=== PATIENT | female | born 1990 | race Caucasian/White ===

== ENCOUNTER → 2017-12-09 11:26 | Outpatient (CLI) | payer BC, SELFPAY ==
[2016-10-05 16:55] VITALS: BMI 25.4
[2016-10-07 08:32] VITALS: BP 104/65
[2017-12-09 12:02] LABS: Absolute Lymphocyte Count 1.68 X10^3/ul (0.83-4.51); Absolute Neutrophil Count 5.5 X10^3/uL (2.0-7.7); Basophil# 0.04 X10^3/uL; Basophil% 0.5 % (0-1); Eosinophil# 0.12 X10^3/uL; Eosinophils% 1.5 % (0-5); Hematocrit 39.6 % (37-47); Hemoglobin 13.3 g/dl (12.0-15.0); Lymphocyte # 1.68 X10^3/ul (4.0); Lymphocyte % 21.1 % (19-41); Mean Corp Hgb Conc 33.6 g/gl (32-36); Mean Corpuscular Volume 92.3 fL (81-99); Mean Platelet Vol. 10.2 fl (6.2-12.0); Monocyte# 0.62 X10^3/uL; Monocyte% 7.8 % (0-10); Neutrophil # 5.48 X10^3/uL (2.7-7.7); Platelet Count 197 K/mm3 (150-450); RBC Distribution Width SD 42.7 fl (35.1-43.9); Red Blood Count 4.29 M/mm3 (4.2-5.4)
[2017-12-09 12:03] LABS: POSITIVE COUNT NO; POSITIVE DIFFERENTIAL NO; POSITIVE MORPHOLOGY NO
[2017-12-09 12:07] LABS: Color, Urine Yellow (Yellow); Glucose, Dipstick Normal (Normal); Ketone-Dipstick Negative (Negative); Leukocyte Esterase-Dipstick 25 /ul (Negative); Nitrite-Dipstick Negative (Negative); Occult Blood-Urine Negative /ul (Negative); Protein-Dipstick Negative (Negative); Urine Bilirubin Dipstick Negative (Negative); Urine Clarity Clear (Clear); Urine Urobilinogen Normal (Normal)
[2017-12-09 12:21] LABS: Amphetamine Urine VISTA NEGATIVE (<1000 ng/mL); Barbiturate Urine VISTA NEGATIVE (< 200 ng/mL); Benzodiazepine Urine VISTA NEGATIVE (< 200 ng/mL); Cocaine Urine VISTA NEGATIVE (< 300 ng/mL); Ecstacy Urine VISTA NEGATIVE (< 500 ng/mL); Methadone Urine VISTA NEGATIVE (< 300 ng/mL); PCP Urine VISTA NEGATIVE (< 25 ng/mL); THC Urine VISTA NEGATIVE (< 50 ng/mL); Vista UDS pH Range 6
[2017-12-09 12:43] LABS: Free T3 2.2 pg/mL (2.18-3.98); T4 Free Direct 0.73 ng/dL (0.76-1.46); Thyroid Stim Hormone (TSH) 2.99 uIU/mL (0.358-3.74)
[2017-12-09 13:40] LABS: COTININE Drug Screen Negative (<200 ng/mL)
[2017-12-09 14:12] LABS: HIV - WCH Non-Reactive (Nonreactive); Rubella IgG > 500.0 IU/mL
[2017-12-10 10:47] LABS: HEPATITIS B SURFACE AG Negative (Negative); Hep C Antibodies 0.1 s/co ratio (0.0-0.9)
[2017-12-16 11:44] LABS: Prenatal RPR NONREACTIVE (NONREACTIVE)
== END ==
PROVIDERS: Visit Provider Obstetrics & Gynecology
DX: Z34.81 Encounter for supervision of other normal pregnancy, first trimester (principal)
CPT/HCPCS: 36415; 80307; 81002; 84439; 84443; 84481; 85025; 86703; 86762; 86803; 87340

== ENCOUNTER → 2018-02-01 10:52 | Outpatient (CLI) | payer BC, SELFPAY ==
[2018-02-01 13:56] LABS: Free T3 2.2 pg/mL (2.18-3.98); T4 Free Direct 0.88 ng/dL (0.76-1.46); Thyroid Stim Hormone (TSH) 2.56 uIU/mL (0.358-3.74)
== END ==
PROVIDERS: Visit Provider Obstetrics & Gynecology
DX: E03.9 Hypothyroidism, unspecified (principal)
CPT/HCPCS: 36415; 84439; 84443; 84481

== ENCOUNTER → 2018-04-18 10:13 | Outpatient (CLI) | payer BC, SELFPAY ==
[2018-04-18 13:55] LABS: Hematocrit 37.2 % (37-47); Hemoglobin 12.5 g/dl (12.0-15.0); Mean Corp Hgb Conc 33.6 g/gl (32-36); Mean Corpuscular Volume 98.2 fL (81-99); Mean Platelet Vol. 10.8 fl (6.2-12.0); Platelet Count 174 K/mm3 (150-450); RBC Distribution Width CV 12.8 % (11.6-14.6); RBC Distribution Width SD 44.7 fl (35.1-43.9); Red Blood Count 3.79 M/mm3 (4.2-5.4); White Blood Count 8.2 K/mm3 (4.4-11.0)
[2018-04-18 13:56] LABS: Scan Indicated on CBC? Y/N NO
[2018-04-18 14:17] LABS: Free T3 1.9 pg/mL (2.18-3.98); Glucose Challenge Gest 1H 50g 77 mg/dL (70-140); T4 Free Direct 0.77 ng/dL (0.76-1.46)
== END ==
PROVIDERS: Visit Provider Obstetrics & Gynecology
DX: Z34.83 Encounter for supervision of other normal pregnancy, third trimester (principal)
CPT/HCPCS: 36415; 82950; 84439; 84443; 84481; 85027

== ENCOUNTER → 2018-05-23 11:34 | Outpatient (CLI) | payer BC, SELFPAY ==
[2018-05-23 12:14] LABS: Fetal Fibronectin Negative
== END ==
PROVIDERS: Visit Provider Obstetrics & Gynecology
DX: Z34.83 Encounter for supervision of other normal pregnancy, third trimester (principal)
CPT/HCPCS: 82731

== ENCOUNTER → 2018-06-06 11:15 | Outpatient (CLI) | payer BC, SELFPAY ==
[2018-06-06 13:37] LABS: Group B Strep DNA By PCR Negative (Negative); Internal Control PASS; Probe Check PASS; Specimen Processing Control PASS
== END ==
PROVIDERS: Visit Provider Obstetrics & Gynecology
DX: Z36.85 Encounter for antenatal screening for Streptococcus B (principal)
CPT/HCPCS: 87081; 87653

== ENCOUNTER 2018-07-19 01:08 | Inpatient (IN) | payer BC, SELFPAY ==
[2018-07-18 23:25] VITALS: BMI 26.5
[2018-07-19] MEDS: 0.9% Saline Lock 10 ML Syringe IV (01:33)
[2018-07-19 01:58] LABS: Hematocrit 38.1 % (37-47); Hemoglobin 13.2 g/dl (12.0-15.0); Mean Corp Hgb Conc 34.6 g/gl (32-36); Mean Corpuscular Hgb 33.2 pg (27.0-32.0); Mean Corpuscular Volume 95.7 fL (81-99); Mean Platelet Vol. 11.8 fl (6.2-12.0); Platelet Count 135 K/mm3 (150-450); RBC Distribution Width CV 12.6 % (11.6-14.6); RBC Distribution Width SD 42.8 fl (35.1-43.9); Red Blood Count 3.98 M/mm3 (4.2-5.4); Scan Indicated on CBC? Y/N NO; White Blood Count 11.3 K/mm3 (4.4-11.0)
[2018-07-19] MEDS: Lactated Ringers 1,000 ML 50 ML IV (07:20)
[2018-07-19] MEDS: Oxytocin 30 units/NS 500 ml 30 UNITS/500 ML IV.SOLN IV (07:21)
--- NOTE | 2018-07-19 08:18 | PCM.PROGNOTE ---
- Physical Exam Weight: 74.6 kg Body Mass Index (BMI) 26.5 Laboratory Tests Past 24 Hrs 07/19/18 07/19/18 01:33 01:33 WBC 11.3 H RBC 3.98 L Hgb 13.2 Hct 38.1 MCV 95.7 MCH 33.2 H MCHC 34.6 RDW 12.6 RDW Differential 42.8 Plt Count 135 L MPV 11.8 Blood Type A POSITIVE Antibody Screen NEGATIVE Medical Necessity - Tobacco Use Smoking Status: Never smoker
--- NOTE | 2018-07-19 08:21 | OB.TRI.PN ---
Progress Notes Date of Service: 07/19/18 Progress Note: LABOR PROGRESS NOTE Sitting on birthing ball, NAD AVSS Pitocin at 4 mIU/min EFM 110-120s avg variability. Accels. UCs q 2-4 with irregularity noted, coupling and spacing CX 5 cm at 7 am per RN check A/P: 41 1/7 wk EGA induction of labor. Plans no epidural Continue Pitocin watch progress, descent.
[2018-07-19] MEDS: Oxytocin 30 units/NS 500 ml 30 UNITS/500 ML IV.SOLN 334 UNITS IV (10:00)
[2018-07-19] MEDS: Methylergonovine 0.2 MG/ML Ampul IM (10:20)
[2018-07-19] MEDS: Oxytocin 30 units/NS 500 ml 30 UNITS/500 ML IV.SOLN 167 UNITS IV (10:30)
[2018-07-19] MEDS: Ibuprofen 600 MG Tablet PO ×2 (10:55→21:06)
[2018-07-19] MEDS: Levothyroxine 50 MCG Tablet PO (11:28)
--- NOTE | 2018-07-19 12:07 | PCM.OB.VAG ---
Vaginal Delivery Maternal Presentation: Medically Indicated Induction 41 1/7 wk irregular UCs Method of Induction: Pitocin Amniotic Membrane Rupture Type: Artificial Amniotic Fluid Description: Lightly stained meconium Final FRANKLIN: 07/11/18 Gestational age: 41 Weeks and 1 Days [place] doctor who attended delivery (if requested by OB): Ash Castrejon Date of Procedure: 07/19/18 Pre-Operative Diagnosis: 41 1/7 wk induction Post-Operative Diagnosis: same Surgery/ Procedure Performed: Spontaneous Vaginal Delivery Type of Anesthesia: None Description of Procedure: of a dawson male over intact perineum, no anesthesia. Dawson viable male. Head delivered XIOMARA. OP and nares bulb suctioned. No nuchal cord. Moderate shoulder dystocia relieved by Kirt's maneuver, maternal expulsive effort, gentle lateral traction, Suprapubic pressure and rotation of shoulders. Baby initially with poor tone. Cord clamped x two and cut. to safe expert and RT present for delivery. Ap 8/9. PP exam. No lacerations. Placenta delivered by spont expulsion, expression normal appearing, intact with 3 v cord. EBL 300 cc Pt and infant tolerated delivery well. To recovery, stable condition. Ray Radha counts correct x two. Presentation: Vertex, XIOMARA Cord Vessel Description: 3 Vessels Cord Entanglement: None Estimated Blood Loss: 300 Infant A gender: Male (1 minute): 8 (5 minute): 9 Episiotomy Description: None Laceration: None Medications given after delivery: IV Pitocin Complications: None
--- NOTE | 2018-07-19 12:12 | OP.PCM_ITS ---
Vaginal Delivery Maternal Presentation: Medically Indicated Induction 41 1/7 wk irregular UCs Method of Induction: Pitocin Amniotic Membrane Rupture Type: Artificial Amniotic Fluid Description: Lightly stained meconium Final FRANKLIN: 07/11/18 Gestational age: 41 Weeks and 1 Days [place] doctor who attended delivery (if requested by OB): Ash Castrejon Date of Procedure: 07/19/18 Pre-Operative Diagnosis: 41 1/7 wk induction Post-Operative Diagnosis: same Surgery/ Procedure Performed: Spontaneous Vaginal Delivery Type of Anesthesia: None Description of Procedure: of a dawsno male over intact perineum, no anesthesia. Dawson viable male. Head delivered XIOMARA. OP and nares bulb suctioned. No nuchal cord. Moderate shoulder dystocia relieved by Kirt's maneuver, maternal expulsive effort, gentle lateral traction, Suprapubic pressure and rotation of shoulders. Baby initially with poor tone. Cord clamped x two and cut. to plugger man and RT present for delivery. Ap 8/9. PP exam. No lacerations. Placenta delivered by spont expulsion, expression normal appearing, intact with 3 v cord. EBL 300 cc Pt and infant tolerated delivery well. To recovery, stable condition. Ray Radha counts correct x two. Presentation: Vertex, XIOMARA Cord Vessel Description: 3 Vessels Cord Entanglement: None Estimated Blood Loss: 300 Infant A gender: Male (1 minute): 8 (5 minute): 9 Episiotomy Description: None Laceration: None Medications given after delivery: IV Pitocin Complications: None
--- NOTE | 2018-07-19 12:12 | PCM.DCVAG ---
Discharge Diet: No Restrictions Discharge Activity: May Shower, May Take a Tub Bath May resume sexual activity in: 4-6 weeks Additional Activity Instructions:: Nothing in the vagina for 4-6 weeks. You may return to work/school in 6 weeks. Additional Instructions: If you experience any of the following, contact your healthcare provider. Bleeding that soaks a pad every hour for 2 hours Fever 100.4 or higher Unrelieved abdominal pain Problems urinating (including inability to urinate or burning while urinating). Visual changes Severe headache Flu-like symptoms Pain or redness in one of both of your breasts Pain, warmth, tenderness or swelling in your legs, especially the calf area Frequent nausea and vomiting Symptoms of depression or anxiety If you experience any of the following, call 911 or go to the nearest Emergency Room. Chest pain Problems breathing Seizure activity Partial or complete paralysis of a body part, slurred speech, weakness or drooping of the face, or a sudden inability to walk or hold your balance Allergies/Adverse Reactions: Allergies No Known Allergies Allergy (Verified 10/05/16 16:56) Medications to take at Discharge Tablet 1 tab PO DAILY 10/05/16 Levothyroxine [Synthroid] 25 mcg PO QODAY 07/18/18 Levothyroxine [Synthroid] 50 mcg PO QODAY 07/18/18 Please Follow Up With: Geremias Gonzalez MD - [phone] When: Call to make an appointment with your doctor in 6 weeks. Primary Care Physician: Ollie Lopez DO [Primary Care Provider] - Test Results: Test results from this visit will be discussed in further detail at your follow-up appointment, if applicable. Proposed Discharge Date: 07/21/18
--- NOTE | 2018-07-19 12:13 | DCINST_ITS ---
Discharge Diet: No Restrictions Discharge Activity: May Shower, May Take a Tub Bath May resume sexual activity in: 4-6 weeks Additional Activity Instructions:: Nothing in the vagina for 4-6 weeks. You may return to work/school in 6 weeks. Additional Instructions: If you experience any of the following, contact your healthcare provider. * Bleeding that soaks a pad every hour for 2 hours * Fever 100.4 or higher * Unrelieved abdominal pain * Problems urinating (including inability to urinate or burning while urinating) . * Visual changes * Severe headache * Flu-like symptoms * Pain or redness in one of both of your breasts * Pain, warmth, tenderness or swelling in your legs, especially the calf area * Frequent nausea and vomiting * Symptoms of depression or anxiety If you experience any of the following, call 911 or go to the nearest Emergency Room. * Chest pain * Problems breathing * Seizure activity * Partial or complete paralysis of a body part, slurred speech, weakness or drooping of the face, or a sudden inability to walk or hold your balance Allergies/Adverse Reactions: Allergies No Known Allergies Allergy (Verified 10/05/16 16:56) Medications to take at Discharge Tablet 1 tab PO DAILY 10/05/16 Levothyroxine [Synthroid] 25 mcg PO QODAY 07/18/18 Levothyroxine [Synthroid] 50 mcg PO QODAY 07/18/18 Please Follow Up With: Geremias Gonzalez MD - [phone] When: Call to make an appointment with your doctor in 6 weeks. Primary Care Physician: Ollie Lopez DO [Primary Care Provider] - Test Results: Test results from this visit will be discussed in further detail at your follow- up appointment, if applicable. Proposed Discharge Date: 07/21/18
--- NOTE | 2018-07-19 14:09 | NURSING ---
This nurse reviewed the charting completed by Yoandy Arroyo, student nurse.
[2018-07-19 16:00] VITALS: BP 122/70; PULSE 72; RESP 16; TEMP 36.6
[2018-07-19] MEDS: Prenatal Vits Tablet 1 TABLET PO (17:08)
[2018-07-19 19:45] VITALS: BP 115/67; PULSE 83; RESP 16; TEMP 36.8
[2018-07-19 23:35] VITALS: BP 108/67; PULSE 85; RESP 16; TEMP 36.3
[2018-07-20 03:35] VITALS: BP 120/77; PULSE 73; RESP 16; TEMP 36.1
[2018-07-20] MEDS: Levothyroxine 25 MCG TABLET PO (06:01)
[2018-07-20] MEDS: Ibuprofen 600 MG Tablet PO (08:01)
[2018-07-20 08:03] VITALS: BP 120/70; PULSE 71; RESP 18; TEMP 36.8
--- NOTE | 2018-07-20 08:08 | PCM.PN.OB ---
Subjective: PPD#1 41 1/7 wk Doing well. States no sleep but baby is cluster feeding. Nursing well. Would like to go home today. States cramping with nursing. Ibuprofen for that. Baby 8# 11 oz. Largest of all her children. - Physical Exam General: Alert, Oriented x3, Cooperative, No apparent distress HEENT: Atraumatic Neck: Supple Abdomen: Soft - Fundus firm NT at 2-3 cm inf to umbilicus Neurological: Cranial nerves II-XII grossly intact Psych/Mental Status: Normal Affect Vital Signs Temp Pulse Resp BP 98.3 F 71 18 120/70 07/20/18 08:03 07/20/18 08:03 07/20/18 08:03 07/20/18 08:03 Oxygen Delivery Method Room Air Weight: 74.6 kg Body Mass Index (BMI) 26.5 Intake and Output for Last 24 Hours 07/18/18 07/19/18 07/20/18 23:59 23:59 23:59 Intake Total 1650 / 1650 Output Total 700 / 700 Balance 950 / 950 Medical Necessity - Tobacco Use Smoking Status: Never smoker Assessment/Plan PPD#1 41 1/7 wk. Shoulder dystocia Stable pp. Wants to go home today. D/c home if baby is released. RTO in 6 wk for pp check
--- NOTE | 2018-07-20 08:32 | NURSING ---
AM ASSESSMENT COMPLETED WITH GONZALO STUDENT NURSE. AGREE WITH STUDENT NURSE DOCUMENTATION.
[2018-07-20 13:24] VITALS: BP 118/71; PULSE 72; RESP 18; TEMP 36.6
== END 2018-07-20 16:00 | disposition home or self-care (01) | DRG 775 ==
LOC: WPOUT 01:10
PROVIDERS: Admitting Provider Obstetrics & Gynecology; Family Provider Family Medicine; PCP Family Medicine; Visit Provider Obstetrics & Gynecology
DX: O48.0 Post-term pregnancy (principal); Z3A.41 41 weeks gestation of pregnancy; O66.0 Obstructed labor due to shoulder dystocia; Z37.0 Single live birth
CPT/HCPCS: 36415; 59025; 59050; 85027; 86850; 86900; 99218; J7120; A4216; G0378

== ENCOUNTER → 2018-08-29 10:06 | Outpatient (CLI) | payer BC, SELFPAY ==
[2018-08-29 14:18] LABS: Free T3 2.6 pg/mL (2.18-3.98); T4 Free Direct 0.95 ng/dL (0.76-1.46); Thyroid Stim Hormone (TSH) 0.79 uIU/mL (0.358-3.74)
== END ==
PROVIDERS: Visit Provider Obstetrics & Gynecology
DX: O99.280 Endocrine, nutritional and metabolic diseases complicating pregnancy, unspecified trimester (principal); E03.9 Hypothyroidism, unspecified; Z3A.00 Weeks of gestation of pregnancy not specified
CPT/HCPCS: 36415; 84439; 84443; 84481

== ENCOUNTER → 2018-09-30 08:48 | Outpatient (CLI) | payer BC, SELFPAY ==
[2018-09-30 11:22] LABS: Cholesterol 315 mg/dL (200); High Density Lipoprotein 58 mg/dL; Thyroid Stim Hormone (TSH) 0.34 uIU/mL (0.358-3.74); Triglycerides 62 mg/dL; Very Low Density Lipoprotein 12 mg/dL (5-40)
--- OUTSIDE RECORDS SUMMARY | 2018-11-24 19:12 | XMS RPT_ITS ---
:1990 Author Organization [employer] Support Name Relationship Address Phone RONALD RAMSEY Unavailable [address] + [address] [place] [address] UE Unavailable Unavailable Unavailable RONALD RAMSEY Unavailable [address] + [address] [place] [address] UE Unavailable Unavailable Unavailable RONALD RAMSEY Unavailable [address] + [address] [place] [address] UE Unavailable Unavailable Unavailable RONALD RAMSEY Unavailable [address] + [address] [place] [address] UE Unavailable Unavailable Unavailable RONALD RAMSEY Unavailable [address] + [address] [place] [address] UE Unavailable Unavailable Unavailable RONALD RAMSEY Unavailable [address] + [address] [place] [address] UE Unavailable Unavailable Unavailable RONALD RAMSEY Unavailable [address] + [address] [place] [address] UE Unavailable Unavailable Unavailable RONALD RAMSEY Unavailable [address] + [address] [place] [address] UE Unavailable Unavailable Unavailable RONALD RAMSEY Unavailable [address] + [address] [place] [address] [facility] Unavailable [address] + [place] [address] RONALD RAMSEY Unavailable [address] + [address] [place] [address] [facility] Unavailable [address] + [place] [address] Care Team Providers Name Role Phone Carlos, Geremias Attending Unavailable Seals, Geremias Attending Unavailable Seals, Geremias Attending Unavailable Seals, Geremias Attending Unavailable Seals, Geremias Attending Unavailable Seals, Geremias Attending Unavailable Seals, Geremias Admitting Unavailable Seals, Geremias Attending Unavailable Seals, Geremias Referring Unavailable John, Ollie Primary Care Unavailable Benekos, Gisella Attending Unavailable Cochran, Ollie Primary Care Unavailable Benekos, Gisella Admitting Unavailable Benekos, Gisella Referring Unavailable Benekos, Gisella Attending Unavailable Tsai, Carl Attending Unavailable Tsai, Carl Referring Unavailable Tsai, Carl Primary Care Unavailable PROBLEMS PROBLEMS DATE TYPE CONDITION / CODE ATTENDING STATUS SOURCE 06/23/2018 Unknown Z36.85 - Encounter Sealrufus, Geremias Active [place] for Community screening for Hospital Streptococcus B / Repository Z36.85(ICD-10) 05/23/2018 Unknown Z34.83 - Encounter Seals, Geremias Active [facility] for supervision of Community other normal Hospital , third Repository trimester / Z34.83(ICD-10) 02/01/2018 Unknown E03.9 - Seals, Geremias Active [facility] Hypothyroidism, Community unspecified / Hospital E03.9(ICD-10) Repository 01/25/2018 Unknown Z34.81 - Encounter SealsGeremias Active [facility] for supervision of Community other normal Hospital , first Repository trimester / Z34.81(ICD-10) 11/23/2017 Unknown Z11.3 - Encounter Seals, Geremias Active [place] for screening for Community infections with a Hospital predominantly Repository sexual mode of transmission / Z11.3(ICD-10) 11/23/2017 Unknown Z32.01 - Encounter SealsGeremias Active [place] for test, Community result positive / Hospital Z32.01(ICD-10) Repository PROCEDURES PROCEDURES No Procedure Records FoundRESULTS RESULTS LIPID PROFILE Collected: 09/30/2018 Status: F Source: [facility] TYPE CODE TESTS RESULT OUT OF RANGE REFERENCE UNITS LAB L501.4900 200 mg/dL High CHOL 315 Result Comment: <200 mg/dL Desirable 200-240 mg/dL Borderline >240 mg/dL High Risk LAB L501.5000 mg/dL Normal TRIG 62 Result Comment: The drugs N-Acetylcysteine and Metamizole may falsely depress this assay. Serum Triglycerides Reference Interval Normal <150 mg/dL Borderline high 150 - 199 mg/dL High 200 - 499 mg/dL Very High > or = 500 mg/dL LAB L501.6400 mg/dL Normal HDL 58 Result Comment: The drugs N-Acetylcysteine and Metamizole may falsely depress this assay. Reference Range HDL <40 mg/dL Low HDL Cholesterol HDL >or= 60 mg/dL High HDL Cholesterol LAB L501.6500 0-130 mg/dL High LDL 245 LAB L501.6600 5-40 mg/dL Normal VLDL 12 Performed By: #### L500.4100, L501.9520 #### [facility] [address] [place], [address] THYROID STIM HORMONE Collected: 09/30/2018 Status: F Source: [facility] (TSH) 9:29 AM [facility] REPOSITORY TYPE CODE TESTS RESULT OUT OF RANGE REFERENCE UNITS LAB L501.9520 0.358-3.74 uIU/mL Low TSH 0.34 Performed By: #### L500.4100, L501.9520 #### [facility] [address] [place], [address] FREE T3 Collected: 08/29/2018 Status: F Source: [place] 10:09 AM [facility] REPOSITORY TYPE CODE TESTS RESULT OUT OF RANGE REFERENCE UNITS LAB L501.00696 2.18-3.98 pg/mL Normal FREE T3 2.6 Performed By: #### L501.77637, L501.9520, L506.0400 #### [facility] [address] [place], [address] THYROID STIM HORMONE Collected: 08/29/2018 Status: F Source: [facility] (TSH) 10:09 AM [facility] REPOSITORY TYPE CODE TESTS RESULT OUT OF RANGE REFERENCE UNITS LAB L501.9520 0.358-3.74 uIU/mL Normal TSH 0.79 Performed By: #### L501.58688, L501.9520, L506.0400 #### [facility] [address] [place], [address] T4 FREE DIRECT Collected: 08/29/2018 Status: F Source: [facility] 10:09 AM [facility] REPOSITORY TYPE CODE TESTS RESULT OUT OF RANGE REFERENCE UNITS LAB L506.0400 0.76-1.46 ng/dL Normal T4 FREE 0.95 DIRECT Performed By: #### L501.65666, L501.9520, L506.0400 #### [facility] [address] [place], [address] DISCHARGE INSTRUCTION Observed: 07/19/2018 Status: F Source: [place] 12:13 PM [facility] REPOSITORY [facility] Medical Records Department [address] [place] [address] Instructions for Home/Discharge Instructions 07/19/18 1212 MR#: [id number] Acct: [id number] Name: ANNE RAMSEY Rep #: [id number] : 1990 28 From: Gisella Diaz MD PCP: Ollie Lopez DO Status: ADM IN Discharge Diet: No Restrictions Discharge Activity: May Shower, May Take a Tub Bath May resume sexual activity in: 4-6 weeks Additional Activity Instructions:: Nothing in the vagina for 4-6 weeks. You may return to work/school in 6 weeks. Additional Instructions: If you experience any of the following, contact your healthcare provider. * Bleeding that soaks a pad every hour for 2 hours * Fever 100.4 or higher * Unrelieved abdominal pain * Problems urinating (including inability to urinate or burning while urinating). * Visual changes * Severe headache * Flu-like symptoms * Pain or redness in one of both of your breasts * Pain, warmth, tenderness or swelling in your legs, especially the calf area * Frequent nausea and vomiting * Symptoms of depression or anxiety If you experience any of the following, call 911 or go to the nearest Emergency Room. * Chest pain * Problems breathing * Seizure activity * Partial or complete paralysis of a body part, slurred speech, weakness or drooping of the face, or a sudden inability to walk or hold your balance Allergies/Adverse Reactions: Allergies No Known Allergies Allergy (Verified 10/05/16 16:56) Medications to take at Discharge Tablet 1 tab PO DAILY 10/05/16 Levothyroxine [Synthroid] 25 mcg PO QODAY 07/18/18 Levothyroxine [Synthroid] 50 mcg PO QODAY 07/18/18 Please Follow Up With: Geremias Gonzalez MD - [phone] When: Call to make an appointment with your doctor in 6 weeks. Primary Care Physician: Ollie Lopez DO [Primary Care Provider] - Test Results: Test results from this visit will be discussed in further detail at your follow-up appointment, if applicable. Proposed Discharge Date: 07/21/18 07/19/18 1213 <Electronically signed by Gisella Diaz MD> Date Gisella Diaz MD CC: Ollie Lopez DO OPERATIVE REPORT Observed: 07/19/2018 Status: F Source: [place] 12:12 PM [facility] REPOSITORY [facility] Medical Records Department [address] [place] [address] [place] [address] Operative Report 07/19/18 1207 MR#: [id number] Acct: [id number] Name: ANNE RAMSEY Rep #: [id number] : 1990 28 From: Gisella Diaz MD PCP: Ollie Lopez DO Status: ADM IN Y Location: [id number] Vaginal Delivery Maternal Presentation: Medically Indicated Induction 41 1/7 wk irregular UCs Method of Induction: Pitocin Amniotic Membrane Rupture Type: Artificial Amniotic Fluid Description: Lightly stained meconium Final FRANKLIN: 07/11/18 Gestational age: 41 Weeks and 1 Days Oral doctor who attended delivery (if requested by OB): Ash Castrejon Date of Procedure: 07/19/18 Pre-Operative Diagnosis: 41 1/7 wk induction Post-Operative Diagnosis: same Surgery/ Procedure Performed: Spontaneous Vaginal Delivery Type of Anesthesia: None Description of Procedure: of a more male over intact perineum, no anesthesia. More viable male. Head delivered XIOMARA. OP and nares bulb suctioned. No nuchal cord. Moderate shoulder dystocia relieved by Kirt's maneuver, maternal expulsive effort, gentle lateral traction, Suprapubic pressure and rotation of shoulders. Baby initially with poor tone. Cord clamped x two and cut. Infant to socket puller and RT present for delivery. Ap 8/9. PP exam. No lacerations. Placenta delivered by spont expulsion, expression normal appearing, intact with 3 v cord. EBL 300 cc Pt and infant tolerated delivery well. To recovery, stable condition. Ray Radha counts correct x two. Presentation: Vertex, XIOMARA Cord Vessel Description: 3 Vessels Cord Entanglement: None Estimated Blood Loss: 300 A gender: Male (1 minute): 8 (5 minute): 9 Episiotomy Description: None Laceration: None Medications given after delivery: IV Pitocin Complications: None 07/19/18 1212 <Electronically signed by Gisella Diaz MD> Date Gisella Diaz MD CC: Ollie Lopez DO; Gisella Diaz MD Signed CBC-COMPLETE BLOOD CNT Collected: 07/19/2018 Status: F Source: [facility] NO DIFF 1:33 AM [facility] REPOSITORY TYPE CODE TESTS RESULT OUT OF RANGE REFERENCE UNITS LAB L100.1000 4.4-11.0 K/mm3 High WBC 11.3 LAB L100.1200 4.2-5.4 M/mm3 Low RBC 3.98 LAB L100.1300 12.0-15.0 g/dl Normal HGB 13.2 LAB L100.1400 37-47 % Normal HCT 38.1 LAB L100.1500 81-99 fL Normal MCV 95.7 LAB L100.1600 27.0-32.0 pg High MCH 33.2 LAB L100.1700 32-36 g/gl Normal MCHC 34.6 LAB L100.1810 11.6-14.6 % Normal RDW CV 12.6 LAB L100.1820 35.1-43.9 fl Normal RDW SD 42.8 LAB L100.1900 150-450 K/mm3 Low PLT 135 LAB L100.2000 6.2-12.0 fl Normal MPV 11.8 Performed By: #### L100.0500 #### [facility] [address] [place], [address] TYPE AND SCREEN Collected: 07/19/2018 Status: F Source: [place] 1:33 AM [facility] REPOSITORY Order Comment: Reason for Type AND Screen/Red Cells: TYPE CODE TESTS RESULT OUT OF RANGE REFERENCE UNITS LAB B10.0800 A Normal BLOOD TYPE GEL POSITIVE LAB B100.4000 Normal Antibody NEGATIVE Screen Performed By: #### B101.7450 #### [facility] [address] [place], [address] GROUP B STREP DNA Collected: 06/06/2018 Status: F Source: [facility] BY PCR 9:45 AM [facility] REPOSITORY Order Comment: Source: Vaginal-Rectal TYPE CODE TESTS RESULT OUT OF RANGE REFERENCE UNITS LAB L8200.0100 Negative Normal GBS TEST Negative RESULT Performed By: #### L8200.0000 #### [facility] [address] [place], [address] Observed: 06/06/2018 Status: F Source: [facility] CULTURE, GROUP B 12:00 AM [facility] STREPTOCOCCUS REPOSITORY BETH Culture Group B Beta Streptococcus is not isolated. Performed By: #### M100.1800 #### [facility] [address] [place], [address] FIBRONECTIN Collected: 05/23/2018 Status: F Source: [facility] 11:00 AM [facility] REPOSITORY Order Comment: STAT. TONYA OFFICE WITH RESULTS. [phone] TYPE CODE TESTS RESULT OUT OF RANGE REFERENCE UNITS LAB L205.0100 Normal fFN Negative Result Comment: RESULTS CALLED TO NURSE VOICEMAIL AT [phone] 05/23/18 1214 Tete Jaquez. Performed By: #### L205.0000 #### [facility] [address] [place], [address] CBC-COMPLETE BLOOD CNT Collected: 04/18/2018 Status: F Source: [facility] NO DIFF 10:20 AM [facility] REPOSITORY TYPE CODE TESTS RESULT OUT OF RANGE REFERENCE UNITS LAB L100.1000 4.4-11.0 K/mm3 Normal WBC 8.2 LAB L100.1200 4.2-5.4 M/mm3 Low RBC 3.79 LAB L100.1300 12.0-15.0 g/dl Normal HGB 12.5 LAB L100.1400 37-47 % Normal HCT 37.2 LAB L100.1500 81-99 fL Normal MCV 98.2 LAB L100.1600 27.0-32.0 pg High MCH 33.0 LAB L100.1700 32-36 g/gl Normal MCHC 33.6 LAB L100.1810 11.6-14.6 % Normal RDW CV 12.8 LAB L100.1820 35.1-43.9 fl High RDW SD 44.7 LAB L100.1900 150-450 K/mm3 Normal PLT 174 LAB L100.2000 6.2-12.0 fl Normal MPV 10.8 Performed By: #### L100.0500 #### [facility] [address] [place], [address] GLUCOSE CHALLENGE GEST Collected: 04/18/2018 Status: F Source: [facility] 1H 50G 10:20 AM [facility] REPOSITORY TYPE CODE TESTS RESULT OUT OF RANGE REFERENCE UNITS LAB L501.0250 70-140 mg/dL Normal GLU GEST 77 50g 1H Performed By: #### L501.0250, L501.95849, L501.9520, L506.0400 #### [facility] [address] [place], [address] FREE T3 Collected: 04/18/2018 Status: F Source: [place] 10:20 AM [facility] REPOSITORY TYPE CODE TESTS RESULT OUT OF RANGE REFERENCE UNITS LAB L501.87545 2.18-3.98 pg/mL Low FREE T3 1.9 Performed By: #### L501.0250, L501.57307, L501.9520, L506.0400 #### [facility] [address] [place], [address] THYROID STIM HORMONE Collected: 04/18/2018 Status: F Source: [facility] (TSH) 10:20 AM [facility] REPOSITORY TYPE CODE TESTS RESULT OUT OF RANGE REFERENCE UNITS LAB L501.9520 0.358-3.74 uIU/mL Normal TSH 2.30 Performed By: #### L501.0250, L501.35296, L501.9520, L506.0400 #### [facility] [address] [place], [address] T4 FREE DIRECT Collected: 04/18/2018 Status: F Source: [place] 10:20 AM [facility] REPOSITORY TYPE CODE TESTS RESULT OUT OF RANGE REFERENCE UNITS LAB L506.0400 0.76-1.46 ng/dL Normal T4 FREE 0.77 DIRECT Performed By: #### L501.0250, L501.76089, L501.9520, L506.0400 #### [facility] [address] [place], [address] FREE T3 Collected: 02/01/2018 Status: F Source: [place] 10:55 AM [facility] REPOSITORY TYPE CODE TESTS RESULT OUT OF RANGE REFERENCE UNITS LAB L501.46285 2.18-3.98 pg/mL Normal FREE T3 2.2 Performed By: #### L501.60383, L501.9520, L506.0400 #### [facility] [address] [place], [address] THYROID STIM HORMONE Collected: 02/01/2018 Status: F Source: [place] (TSH) 10:55 AM [facility] REPOSITORY TYPE CODE TESTS RESULT OUT OF RANGE REFERENCE UNITS LAB L501.9520 0.358-3.74 uIU/mL Normal TSH 2.56 Performed By: #### L501.53541, L501.9520, L506.0400 #### [facility] [address] [place], [address] T4 FREE DIRECT Collected: 02/01/2018 Status: F Source: [place] 10:55 AM [facility] REPOSITORY TYPE CODE TESTS RESULT OUT OF RANGE REFERENCE UNITS LAB L506.0400 0.76-1.46 ng/dL Normal T4 FREE 0.88 DIRECT Performed By: #### L501.95792, L501.9520, L506.0400 #### [facility] [address] [place], [address] URINE DRUG SCREEN Collected: 12/09/2017 Status: F Source: [facility] (VISTA) 11:28 AM [facility] REPOSITORY Order Comment: List of Drugs Taken or Suspected? UNK TYPE CODE TESTS RESULT OUT OF RANGE REFERENCE UNITS LAB L505.0075 TO BE Normal CONFIRMED Result Comment: CONFIRMATORY TESTING FOR ALL POSITIVE URINE DRUG SCREEN RESULTS WILL ONLY BE SENT OUT UPON PHYSICIAN ORDER. VISTA Urine Drug Screen methods provide only preliminary analytical test results. A more specific alternate chemical method must be used in order to obtain a confirmed analytical result. Gas chromatography/mass spectrometery (GC/MS) is the preferred confirmatory method. Clinical consideration and professional judgement should be applied to any drug of abuse test result, particularly when preliminary positive results are used. URINE TCA TESTING MUST BE ORDERED SEPARATELY. USE TEST MNEMONIC: [facility] LAB L505.5005 VISTA UDS PH 6 Normal LAB L505.5015 <1000 ng/mL AMPHETAMINES Normal NEGATIVE LAB L505.5025 < 200 ng/mL BARBITIURATES Normal NEGATIVE LAB L505.5035 < 200 ng/mL BENZODIAZIPINE Normal NEGATIVE LAB L505.5045 < 300 ng/mL COCAINE Normal NEGATIVE LAB L505.5055 < 500 ng/mL ECSTACY Normal NEGATIVE LAB L505.5065 < 300 ng/mL METHADONE Normal NEGATIVE LAB L505.5075 < 300 ng/mL OPIATES Normal NEGATIVE LAB L505.5085 < 25 ng/mL PCP Normal NEGATIVE LAB L505.5095 < 50 ng/mL THC Normal NEGATIVE Performed By: #### L505.5000, L505.6240 #### [facility] [address] [place], [address] NICOTINE URINE DRUG Collected: 12/09/2017 Status: F Source: [place] SCREEN 11:28 AM [facility] REPOSITORY Order Comment: List of Drugs Taken or Suspected? UNK TYPE CODE TESTS RESULT OUT OF RANGE REFERENCE UNITS LAB L505.6250 TO BE Normal CONFIRMED Result Comment: CONFIRMATORY TESTING FOR ALL POSITIVE URINE DRUG SCREEN RESULTS WILL ONLY BE SENT OUT UPON PHYSICIAN ORDER. The results of Urine Drug Screen methods provide only preliminary analytical test results. A more specific alternate chemical method must be used in order to obtain a confirmed analytical result. Gas chromatography/mass spectrometery (GC/MS) is the preferred confirmatory method. Clinical consideration and professional judgement should be applied to any drug of abuse test result, particularly when preliminary positive results are used. LAB L505.6270 <200 ng/mL Normal COT DRG Negative SCREEN Result Comment: Cotinine is the first-stage metabolite of Nicotine. Performed By: #### L505.5000, L505.6240 #### [facility] [address] [place], [place], [address] CBC W/DIFF, AUTOMATED Collected: 12/09/2017 Status: F Source: [place] 11:28 AM [facility] REPOSITORY TYPE CODE TESTS RESULT OUT OF RANGE REFERENCE UNITS LAB L100.1000 4.4-11.0 K/mm3 Normal WBC 8.0 LAB L100.1200 4.2-5.4 M/mm3 Normal RBC 4.29 LAB L100.1300 12.0-15.0 g/dl Normal HGB 13.3 LAB L100.1400 37-47 % Normal HCT 39.6 LAB L100.1500 81-99 fL Normal MCV 92.3 LAB L100.1600 27.0-32.0 pg Normal MCH 31.0 LAB L100.1700 32-36 g/gl Normal MCHC 33.6 LAB L100.1810 11.6-14.6 % Normal RDW CV 13.0 LAB L100.1820 35.1-43.9 fl Normal RDW SD 42.7 LAB L100.1900 150-450 K/mm3 Normal PLT 197 LAB L100.2000 6.2-12.0 fl Normal MPV 10.2 LAB L100.2100 47-70 % Normal NEUT% 69.0 LAB L100.2200 19-41 % Normal LY% 21.1 LAB L100.2300 0-10 % Normal MONO% 7.8 LAB L100.2400 0-5 % Normal EO% 1.5 LAB L100.2500 0-1 % Normal BASO% 0.5 LAB L100.2550 0.0-0.9 % Normal IM GRAN % 0.100 Result Comment: IG% - Immature Granulocytes (promyelocytes, myelocytes and metamyelocytes) > 1% indicates that a LEFT SHIFT is Present. LAB L100.2620 2.0-7.7 X10 3/uL Normal Absolute Neut 5.5 LAB L100.2720 0.83-4.51 X10 3/ul Normal Absolute Lymph 1.68 Performed By: #### L100.0100 #### [facility] [address] [place], [address] URINALYSIS, ROUTINE Collected: 12/09/2017 Status: F Source: [place] (DIPSTICK) 11:28 AM [facility] REPOSITORY Order Comment: How was Urine Obtained? Urine, Random TYPE CODE TESTS RESULT OUT OF RANGE REFERENCE UNITS LAB L400.3000 Yellow COLOR Normal Yellow LAB L400.3050 Clear Normal CLARITY Clear LAB L400.3200 Normal mg/dl Normal GLUCOSE, UR Normal LAB L400.3300 Negative mg/dL Normal BILIRUBIN URINE Negative LAB L400.3400 Negative mg/dl Normal KETONE UR Negative LAB L400.3465 1.002-1.030 Normal SP.GR. DIPSTX 1.020 LAB L400.3550 5.0 - 8.0 pH UR Normal 6.0 LAB L400.3600 Negative mg/dl PROT Normal DIPSTX Negative LAB L400.3700 Normal mg/dl Normal UROBILI Normal LAB L400.3750 Negative Normal NITRITE UR Negative LAB L400.3780 Negative /ul Normal OCCULT BLOOD-UR Negative LAB L400.3800 Negative /ul High LEUK 25 ESTERASE Performed By: #### L400.2010 #### [facility] [place], [address] FREE T3 Collected: 12/09/2017 Status: F Source: [place] 11:28 AM [facility] REPOSITORY TYPE CODE TESTS RESULT OUT OF RANGE REFERENCE UNITS LAB L501.91005 2.18-3.98 pg/mL Normal FREE T3 2.2 Performed By: #### L501.57680, L501.9520, L506.0400 #### [facility] [facility] [place], [address] THYROID STIM HORMONE Collected: 12/09/2017 Status: F Source: [place] (TSH) 11:28 AM [facility] REPOSITORY TYPE CODE TESTS RESULT OUT OF RANGE REFERENCE UNITS LAB L501.9520 0.358-3.74 uIU/mL Normal TSH 2.99 Performed By: #### L501.50738, L501.9520, L506.0400 #### [facility] [place], [address] T4 FREE DIRECT Collected: 12/09/2017 Status: F Source: [place] 11:28 AM [facility] REPOSITORY TYPE CODE TESTS RESULT OUT OF REFERENCE UNITS RANGE LAB L506.0400 0.76-1.46 ng/dL Low T4 FREE 0.73 DIRECT Performed By: #### L501.68926, L501.9520, L506.0400 #### [facility] [address] [place], [address] T AND S-NO Collected: 12/09/2017 Status: F Source: [place] CHARGE W/PNP 11:28 AM [facility] REPOSITORY Order Comment: Reason for Type AND Screen/Red Cells: Surgery? N TYPE CODE TESTS RESULT OUT OF RANGE REFERENCE UNITS LAB B10.0800 A Normal BLOOD POSITIVE TYPE GEL LAB B100.4050 Normal Ab SCREEN NEGATIVE GEL Performed By: #### B100.7550 #### [facility] [address] [place], [address] RUBELLA IGG Collected: 12/09/2017 Status: F Source: [place] 11:28 AM [facility] REPOSITORY TYPE CODE TESTS RESULT OUT OF RANGE REFERENCE UNITS LAB L509.4000 IU/mL Normal Rubella IgG > 500.0 Result Comment: Antibody results Interpretation of Immune Status < 5 IU/ml Presumed Non-immune 5 - < 10 IU/ml Equivocal > or = 10 IU/ml Presumed Immune Performed By: #### L509.4000, L3890.6005 #### [facility] [address] [place], [address] HIV - [facility] Collected: 12/09/2017 Status: F Source: [place] 11:28 AM [facility] REPOSITORY TYPE CODE TESTS RESULT OUT OF RANGE REFERENCE UNITS LAB L3890.6005 Nonreactive Normal HIV - [facility] Non-Reactive Performed By: #### L509.4000, L3890.6005 #### [facility] [address] [place], [address] HEPATITIS B SURFACE Collected: 12/09/2017 Status: F Source: [place] AG 11:28 AM [facility] REPOSITORY TYPE CODE TESTS RESULT OUT OF RANGE REFERENCE UNITS LAB L3100.0400 Negative Normal HB Negative SURF AG Result Comment: Performed at: [facility] [id number] Wan Support Specialist: Duglas Jean PhD, Phone: [phone] Performed By: #### L3100.0390, L3100.0625 #### [facility] (refer to report for specific site) refer to report for address and phone number HEPATITIS C ANTIBODIES Collected: 12/09/2017 Status: F Source: YOL[place] 11:28 AM [facility] REPOSITORY TYPE CODE TESTS RESULT OUT OF RANGE REFERENCE UNITS LAB L3100.0650 0.0-0.9 s/co ratio Normal HEP C AB 0.1 Result Comment: Negative: < 0.8 Indeterminate: 0.8 - 0.9 Positive: > 0.9 The CDC recommends that a positive HCV antibody result be followed up with a HCV Nucleic Acid Amplification test (871511). Performed By: #### L3100.0390, L3100.0625 #### [facility] (refer to report for specific site) refer to report for address and phone number RPR Collected: 12/09/2017 Status: F Source: YOLANDE 11:28 AM [facility] REPOSITORY TYPE CODE TESTS RESULT OUT OF REFERENCE UNITS RANGE LAB L700.5100 NONREACTIVE Normal RPR NONREACTIVE Performed By: #### L700.5100 #### [facility] [address]. [place], [place], [address] CT/NG H BY PCR Collected: 11/23/2017 Status: F Source: YOLANDE 3:45 PM [facility] REPOSITORY TYPE CODE TESTS RESULT OUT OF RANGE REFERENCE UNITS LAB L8200.2100 Negative Normal Chlam Negative Trac PCR LAB L8200.2200 Negative Normal NG by Negative PCR Performed By: #### L8200.2000 #### [facility] [address] [place], [address] ALLERGIES ALLERGIES DATE TYPE / CODE NAME / CODE REACTION SEVERITY SOURCE 10/05/2016 Drug No Known Unknown [facility] Allergy/4160 Allergies/F00 [facility] [address](SNOMED 0674158(RXNOR Repository CT) M) ENCOUNTERS ENCOUNTERS ADMIT/DISCHARGE ACCOUNT ADMITTING ENCOUNTER LOCATION SOURCE NUMBER CLASS 09/30/2018 [id number] Ambulatory [place] 1 [facility] ing:LAB Repository 08/29/2018 [id number] Ambulatory [place] Y[place]ande 6 [facility] ing:WOBLAB Repository 07/19/2018/ [id number] Nasimgrisel, Inpatient [place] Y[place] 8 0 Gisella Encounter [facility] ing:WPRoom: Repository [id number]: 1 07/11/2018 [id number] Geremias Gonzalez Ambulatory [place] Y[place] 9 [facility] ing:WP Repository 06/06/2018 [id number] Ambulatory [place] Y[place]ande 0 [facility] ing:LABSPEC Repository 05/23/2018 [id number] Ambulatory [place] Y[place] 0 [facility] ing:LABSPEC Repository 04/18/2018 [id number] Ambulatory [place] Y[place] 9 [facility] ing:WOBLAB Repository 02/01/2018 [id number] Ambulatory [place] 3 [facility] ing:WOBLAB Repository 12/09/2017 [id number] Ambulatory [place] 3 [facility] ing:WOBLAB Repository 11/23/2017 [id number] Ambulatory [place] 5 [facility] ing:LABSPEC Repository PAYERS PAYERS ENCOUNTER GUARANTOR PAYER SUBSCRIBER SOURCE 09/30/2018 ANNE WOODALL Primary RONALD DOWNSDOB: [place] [phone] Insurance:ANTHEMPolic [id number] [facility] OVERLOOK y Number: [place], [place] [id number] Repository [address]Pip: 330) Date:2181-80-24UV [phone] () [id number], [place] [address]KX: 09/30/2018 Secondary NOT GIVENUNK [place] Insurance:SELF PAY [facility] Number: Effective Repository Date:2018-09-30 08/29/2018 ANNE WOODALL Primary Ronald DownsDOB: [place] [phone] Insurance:ANTHEMPolic [id number] Community OVERLOOK y Number: [facility] [id number] Repository [address]Rqm: (330) Date:2646-24-33JV [phone] () [id number], [place] [address]YO: 08/29/2018 Secondary NOT GIVENUNK [place] Insurance:SELF PAY [facility] Effective Rep[facility] Date:2018-08-29 07/19/2018 [facility] [place] [phone] Insurance:ANTHEMPolic [id number] Community OVERLOOK y Number: [facility] [place] [id number] Repository [address]Hsf: ([phone]) Date:1525-44-29TM [phone] () [id number], [place] [address]XR: 07/19/2018 Secondary NOT GIVENUNK [place] Insurance:SELF PAY [facility] Effective Repository Date:2018-07-18 07/11/2018 ANNE Milton RAMSEY Primary Ronald DownsDOB: [place] [phone] Insurance:ANTHEMPolic [id number] Community OVERLOOK y Number: [facility] [place] [id number] Repository [address]Ccq: ([phone]) Date:5479-65-58VG [phone] () 539[address]ETFMVXP, [place] [address]EC: 07/11/2018 Secondary NOT GIVENUNK [place] Insurance:SELF PAY [facility] Number: Effective Repository Date:2018-06-24 06/06/2018 [facility] DownsD[facility]: [place] [phone] Insurance:ANTHEMPolic [id number] Community OVERLOOK y Number: [facility] [place] [id number] Repository [address]Xsr: (330) Date:3923-45-72IR [phone] () [id number], [place] [address]QB: 06/06/2018 Secondary NOT GIVENUNK [place] Insurance:SELF PAY [facility] Number: Effective Repository Date:2018-06-06 05/23/2018 Anne DownsPo Primary Ronald DownsDOB: [place] [phone] Insurance:ANTHEMPolic [id number] Community Overlook y Number: [facility] [place] [id number] Repository [address]Ffq: (330) Date:1763-04-55BK [phone] () SIMÓN SCHROEDER [address]LW: 05/23/2018 Secondary NOT GIVENUNK [place] Insurance:SELF PAY [facility] Number: Effective Repository Date:2018-05-23 04/18/2018 [facility] Primary Ronald DownsDOB: [place] [phone] Insurance:ANTHEMPolic [id number] Community Overlook y Number: [facility] [place] [id number] Repository [address]Fqm: (330) Date:0505-88-31HN [phone] () [id number] [place] [address]YF: 04/18/2018 Secondary NOT GIVENUNK [place] Insurance:SELF PAY [facility] Number: Effective Repository Date:2018-04-18 02/01/2018 [facility] Primary Ronald DownsDOB: [place] [phone] Insurance:ANTHEMPolic [id number] Community Overlook y Number: [facility] [place] [id number] Repository [address]Yqw: (330) Date:7361-75-78JG [phone] () [id number] [place] [address]QO: 02/01/2018 Secondary NOT GIVENUNK [place] Insurance:SELF PAY [facility] Number: Effective Repository Date:2018-02-01 12/09/2017 [facility] Primary Ronald DownsDOB: [place] [phone] Insurance:ANTHEMPolic [id number] Community Overlook y Number: [facility] [place] [id number] Repository [address]Cxc: (330) Date:8211-27-90DC [phone] () [id number] [place] [address]PA: 12/09/2017 Secondary NOT GIVENUNK [place] Insurance:SELF PAY [facility] Number: Effective Repository Date:2017-12-09 11/23/2017 [facility] [place] [phone] Insurance:ANTHEMPolic [id number] Community Overlook y Number: [place], [place] [id number] Repository [address]Zgi: 330) Date:2519-30-99UG [phone] () [id number], [place] [address]FP: 11/23/2017 Secondary NOT GIVENUNK [place] Insurance:SELF PAY [facility] Number: Effective Repository Date:2017-11-23
== END ==
PROVIDERS: Family Provider Family Medicine; PCP Family Medicine; Referring Provider Family Medicine; Visit Provider Family Medicine
DX: E78.5 Hyperlipidemia, unspecified (principal); E03.9 Hypothyroidism, unspecified
CPT/HCPCS: 36415; 80061; 84443

== ENCOUNTER → 2019-05-18 | Outpatient (CLI) | payer BC, SELFPAY ==
[2018-07-18 23:25] VITALS: BMI 26.5
[2019-05-18 12:04] LABS: Free T3 2.8 pg/mL (2.18-3.98); T4 Free Direct 0.81 ng/dL (0.76-1.46); Thyroid Stim Hormone (TSH) 1.67 uIU/mL (0.358-3.74)
== END | disposition home or self-care (01) ==
PROVIDERS: Family Provider Family Medicine; PCP Family Medicine; Referring Provider Obstetrics & Gynecology; Visit Provider Obstetrics & Gynecology
DX: E03.9 Hypothyroidism, unspecified (principal)
CPT/HCPCS: 36415; 84439; 84443; 84481

== ENCOUNTER → 2019-08-01 | Outpatient (CLI) | payer BC, SELFPAY ==
[2019-08-01 11:19] LABS: Free T3 2.6 pg/mL (2.18-3.98); T4 Free Direct 0.88 ng/dL (0.76-1.46); Thyroid Stim Hormone (TSH) 2.56 uIU/mL (0.358-3.74)
== END | disposition home or self-care (01) ==
LOC: WOBLAB 09:36
PROVIDERS: Visit Provider Obstetrics & Gynecology
DX: E03.9 Hypothyroidism, unspecified (principal)
CPT/HCPCS: 36415; 84439; 84443; 84481

== ENCOUNTER → 2019-08-21 | Outpatient (CLI) | payer BC, SELFPAY ==
--- NOTE | 2019-08-21 16:00 | MRI_ITS ---
STUDY: MRI BRAIN WITH AND WITHOUT CONTRAST REASON FOR EXAM: Female, 29 years old. Recurrent headaches right side TECHNIQUE: Standardized multiplanar fat and water weighted pulse sequences were obtained. IV Dotarem 10 was administered for the contrast portion of the examination. COMPARISON: None. FINDINGS: Normal size of the ventricles and extra-axial spaces for the patient's age. Normal white matter tracts of the supratentorial brain. Normal bilateral basal ganglia. Normal thalami. There is no extra-axial fluid accumulation. Normal flow voids within the major intracranial circulation suggesting patency by spin echo criteria. Normal venous enhancement. There is no enhancing intra-axial or extra-axial abnormality. Normal sella turcica, pituitary gland, infundibular stalk, optic chiasm and hypothalamus. Normal tectal plate and pineal gland. Normal midbrain, irene and medulla. 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 Normal bilateral temporal bones. Normal bilateral internal auditory canals. No demonstrated orbital abnormality, within the constraints of a routine brain study. Large mucous retention cyst in left maxillary sinus Normal calvarium and skull base. Normal visualized soft tissue structures. Normal visualized upper cervical spine. MRI/Brain W/WO Contrast IMPRESSION: Chiari I malformation. Otherwise normal unenhanced and enhanced MRI of the brain. Large left maxillary sinus mucous retention cyst Electronically Signed: Tyrese Armas MD at 18:20 EDT , Service support ,
== END | disposition home or self-care (01) ==
LOC: MRI 15:34
PROVIDERS: Family Provider Family Medicine; PCP Family Medicine; Referring Provider Psychiatry & Neurology Neurology; Visit Provider Psychiatry & Neurology Neurology
DX: R51 Headache (principal)
CPT/HCPCS: 70553; A9575

== ENCOUNTER → 2020-09-11 11:10 | Outpatient (CLI) | payer BC, SELFPAY ==
[2018-07-18 23:25] VITALS: BMI 26.5
[2020-09-11 14:09] LABS: Prolactin 8.7 ng/mL; Thyroid Stim Hormone (TSH) 2.76 uIU/mL (0.358-3.74)
[2020-09-18 05:39] LABS: HPV APTIMA, High Risk Negative (Negative)
[2020-09-18 05:40] LABS: HPV Reflexed? NOT INDICATED
== END ==
PROVIDERS: PCP Family Medicine; Visit Provider Student in an Organized Health Care Education/Training Program
DX: Z12.4 Encounter for screening for malignant neoplasm of cervix (principal)
CPT/HCPCS: 36415; 84146; 84443; 88175; G0145

== ENCOUNTER → 2020-09-18 09:06 | Outpatient (CLI) | payer BC, SELFPAY ==
--- NOTE | 2020-09-18 09:09 | BI_ITS ---
MAMMOGRAPHY - BILATERAL DIAGNOSTIC REASON FOR EXAM: Female, 30 years old. Bilateral breast discharge. Patient has been nursing. PERTINENT HISTORY: TECHNIQUE: Digital bilateral breast nesha (3D mammographic acquisition) in the CC and MLO projections. 2-D mediolateral oblique (MLO) and craniocaudad (CC) views of both breasts were obtained. CAD: Full Field Digital Mammography with Computer Added Detection was performed. COMPARISON: None. Baseline examination. FINDINGS: Breast Composition: The breasts are extremely dense, which lowers the sensitivity of mammography. There are no dominant masses or suspicious calcifications. No other significant abnormalities are identified. BI/DIAG MAMM W/CAD, BILAT IMPRESSION: Negative diagnostic mammogram. With the patient''s history of bilateral breast discharge, correlation with ultrasound is recommended. ASSESSMENT CATEGORY: BIRADS Category 0: Incomplete. Need additional imaging evaluation. A letter regarding these results will be sent to the patient by the facility within 30 days. Approximately 10% of breast cancers are not detected by mammography. A normal mammogram should not delay biopsy of a clinically suspicious abnormality. Electronically Signed: Sylvester Mesa, at 10:38 EST , Service support ,
--- NOTE | 2020-09-18 09:09 | US_ITS ---
STUDY: ULTRASOUND BREAST - RIGHT REASON FOR EXAM: Female, 30 years old. Nipple discharge in the right breast. TECHNIQUE: Axial and longitudinal images of the RIGHT breast were performed with a high resolution ultrasound transducer. # OF IMAGES: 21 COMPARISON: Comparison is made with prior mammogram done earlier in the day. FINDINGS: RIGHT Breast: The retroareolar region was examined by ultrasound. No sonographic abnormality is seen. IMPRESSION: No sonographic abnormality is seen. ASSESSMENT CATEGORY: BIRADS Category 1: Negative. A letter regarding these results will be sent to the patient by the facility within 30 days. Electronically Signed: Sylvester Mesa, at 10:38 EST , Service support , STUDY: ULTRASOUND BREAST - LEFT REASON FOR EXAM: Female, 30 years old. Nipple discharge in the left breast. TECHNIQUE: Axial and longitudinal images of the LEFT breast were performed with a high resolution ultrasound transducer. # OF IMAGES: 21 COMPARISON: Comparison is made with prior mammogram done earlier in the day. FINDINGS: LEFT Breast: The retroareolar region of the left breast was examined by ultrasound. There is dense fibroglandular tissue. US/Breast Limited Unilateral IMPRESSION: No sonographic abnormality is seen. ASSESSMENT CATEGORY: BIRADS Category 1: Negative. A letter regarding these results will be sent to the patient by the facility within 30 days. Electronically Signed: Sylvester Mesa, at 10:40 EST , Service support ,
--- NOTE | 2020-09-18 09:09 | US_ITS ---
STUDY: ULTRASOUND BREAST - RIGHT REASON FOR EXAM: Female, 30 years old. Nipple discharge in the right breast. TECHNIQUE: Axial and longitudinal images of the RIGHT breast were performed with a high resolution ultrasound transducer. # OF IMAGES: 21 COMPARISON: Comparison is made with prior mammogram done earlier in the day. FINDINGS: RIGHT Breast: The retroareolar region was examined by ultrasound. No sonographic abnormality is seen. IMPRESSION: No sonographic abnormality is seen. ASSESSMENT CATEGORY: BIRADS Category 1: Negative. A letter regarding these results will be sent to the patient by the facility within 30 days. Electronically Signed: Sylvester Mesa, at 10:38 EST , Service support , STUDY: ULTRASOUND BREAST - LEFT REASON FOR EXAM: Female, 30 years old. Nipple discharge in the left breast. TECHNIQUE: Axial and longitudinal images of the LEFT breast were performed with a high resolution ultrasound transducer. # OF IMAGES: 21 COMPARISON: Comparison is made with prior mammogram done earlier in the day. FINDINGS: LEFT Breast: The retroareolar region of the left breast was examined by ultrasound. There is dense fibroglandular tissue. US/Breast Limited Unilateral IMPRESSION: No sonographic abnormality is seen. ASSESSMENT CATEGORY: BIRADS Category 1: Negative. A letter regarding these results will be sent to the patient by the facility within 30 days. Electronically Signed: Sylvester Mesa, at 10:40 EST , Service support ,
== END ==
PROVIDERS: Referring Provider Student in an Organized Health Care Education/Training Program; Visit Provider Student in an Organized Health Care Education/Training Program
DX: O92.6 Galactorrhea (principal)
CPT/HCPCS: 76642; 77062; 77066; G0279